=== PATIENT | female | born 1965 | race Caucasian/White ===

== ENCOUNTER 2021-01-02 03:40 | Emergency (ER) | payer MEDICARE, OTHER, SELFPAY ==
--- NOTE | 2021-01-02 03:43 | ECG_ITS ---
[facility] Test Date: 2021-01-02 Pat Name: Jeanie Martines Department: Room: Gender: Female Fourth Officer: : 1965 Requested By: Terra Reaves Order Number: [id number] Carolyn MD: Ashley Villeda M.D. Measurements Intervals Tensed Rate: 90 P: 59 IA: 140 QRS: -12 QRSD: 86 T: 60 QT: 361 QTc: 444 Interpretive Statements SINUS RHYTHM WITH FREQUENT SUPRAVENTRICULAR PREMATURE COMPLEXES SEPTAL MYOCARDIAL INFARCTION [40+ ms Q WAVE IN V1/V2], PROBABLY OLD No previous ECG available for comparison Electronically Signed On 01-03-2021 18:27:00 CDT by Ashley Villeda M.D. [id number]
--- NOTE | 2021-01-02 03:49 | XRR_ITS ---
PROCEDURE INFORMATION: Exam: XR Chest Exam date and time: 01/02/2021 3:49 AM Age: 55 years old Clinical indication: Chest pressure; Patient HX: Chest pain with arrythmia; Additional info: Cp TECHNIQUE: Imaging protocol: XR of the chest. Views: 1 view. COMPARISON: No relevant prior studies available. FINDINGS: Lungs: No CHF/pulmonary edema. Visible lungs appear essentially clear. Pleural spaces: No visible pneumothorax. No definite pleural fluid. Heart/Mediastinum: Heart size is within normal limits. Vasculature: Mild to moderate aortic tortuosity for age. Bones/joints: No significant acute finding. XR/XR chest 1V portable [id number] IMPRESSION: 1. No definite CHF or pneumonia. 2. Other findings discussed above.
[2021-01-02 03:55] VITALS: BP 141/90; PULSE 84; RESP 16; TEMP 36.7; O2SAT 95; BMI 30.2
--- NOTE | 2021-01-02 04:03 | ED_ITS ---
HPI - Arrhythmia/Palpitations General: Chief Complaint: Arrhythmia/Palpitations Stated Complaint: Heart Beating Fast Time Seen by Provider: 01/02/21 03:43 Source: patient Mode of arrival: ambulatory Limitations: no limitations History of Present Illness: HPI narrative: 55-year-old female who states she has had some fluttering butterfly type feeling in the center of her chest since yesterday morning. She denies any pain but is felt a fluttering sensation. She denies any shortness of breath. States she is concerned she is woken up through the night by her apple watch showing that her heart rate was below 40. She has been asymptomatic tonight but want to make sure her heart rate really was not in the 30s as it was alerted. Patient's heart rate here is 84. She denies any shortness of breath. Denies any vomiting or diarrhea. Associated symptoms: Deny nausea or vomiting Review of Systems Const: Denies: fever(s), chills, body aches or change in appetite Eyes: Denies: blurry vision or eye discomfort ENMT: Denies: throat pain or dental pain Card: Reports: chest pain and palpitations Resp: Denies: dyspnea GI: Denies: abdominal pain, nausea, vomiting or diarrhea : Denies: dysuria Musc: Denies: neck pain or back pain Skin/Breast: Denies: rash Neuro: Denies: headache(s) Psych: Denies: depression Сергей/Lymph: Denies: easy bruising All/Imm: Denies: urticaria Physical Exam Const: COMMON NORMALS: no acute distress, patient oriented x3 and healthy appearing HENMT: COMMON NORMALS: normocephalic and atraumatic HEAD & SCALP: normocephalic and atraumatic Eye: COMMON NORMALS: Equal, round and reactive pupils present and EOMs intact bilaterally PUPIL: Yes Equal, round and reactive pupils present Neck/C-Spine: COMMON NORMALS: full ROM and supple Chest: COMMONS NORMALS: normal inspection of the chest and normal palpation of entire chest wall Resp: COMMON NORMALS: normal respiratory effort, No retractions, No use of accessory muscles and clear to auscultation bilaterally AUSCULTATION: clear to auscultation bilaterally Cardio: COMMON NORMALS: regular rate, regular rhythm and No murmurs present (Cardio) RATE: regular rate RHYTHM: regular rhythm GI: COMMON NORMALS: Normal to inspection, nondistended, normoactive bowel sounds present, Soft to palpation, non-tender and no masses PALPATION: Yes Soft to palpation Extremity: COMMON NORMALS: normal to inspection and full ROM Neuro: COMMON NORMALS: patient oriented x3, moves all extremities and no focal motor deficits Psych: COMMON NORMALS: mental status grossly normal, Normal thought process present and cooperative THOUGHT PROCESS: Normal thought process present Skin: COMMON NORMALS: no rashes or lesions noted and no wounds GENERAL SKIN EXAM: no rashes or lesions noted Course Vital Signs: Vital signs: Vital Signs Temperature 98.1 F 01/02/21 03:55 Pulse Rate 87 01/02/21 05:55 Respiratory Rate 15 01/02/21 05:55 Blood Pressure 122/84 01/02/21 05:55 Pulse Oximetry 96 01/02/21 05:55 MDM - Arrhythmia/Palpitations MDM Narrative: Medical decision making narrative: Patient presents here with concern of bradycardia from her apple watch. She has had no bradycardia here. She does have a arrhythmia with frequent premature complexes. Her troponin here is negative has no signs of acute coronary syndrome. We will get her follow-up with cardiology and she is to return if worsening. Lab Data: Labs: Lab Results 01/02/21 01/02/21 01/02/21 Range/Units 04:56 04:56 04:56 WBC 4.4 (4.0-10.0) 10^3/ uL RBC 4.26 (4.1-5.3) 10^6/u L Hgb 13.7 (11.5-15.3) g/dL Hct 42.5 (37.0-47.0) % MCV 99.8 H (81-99) fL MCH 32.2 (28.0-34.0) pg MCHC 32.2 (30.0-36.0) g/dL RDW 13.3 (12.1-15.1) % Plt Count 178 (130-400) 10^3/c mm MPV 11.5 H (7.4-10.4) fL Neut % (Auto) 22.8 % Lymph % (Auto) 56.5 % [place] % (Auto) 13.3 % Eos % (Auto) 6.5 % Baso % (Auto) 0.9 % Neut # (Auto) 1.01 L (1.8-7.7) 10^3/u L Lymph # (Auto) 2.5 (0.8-4.8) 10^3/u L [place] # (Auto) 0.6 (0.2-0.9) 10^3/u L Eos # (Auto) 0.3 (0.0-0.8) 10^3/u L Baso # (Auto) 0.0 (0.0-0.1) 10^3/u L Nucleated RBC % (a uto) 0 % Nucleated RBCs # 0.0 /100WBC Sodium 144 (136-145) mmol/L Potassium 4.7 (3.5-5.1) mmol/L Chloride 107 (98-107) mmol/L Carbon Dioxide 27 (22-29) mmol/L Anion Gap 14.7 (5-19) BUN 20 (6-20) mg/dL Creatinine 0.8 (0.5-0.9) mg/dL GFR Calculation 74.5 L (90-130) mL/min Glucose 94 (65-115) mg/dL Calculated Osmolal ity 300 H (285-295) mOsm/k g Calcium 8.7 (8.5-10.5) mg/dL Total Bilirubin 0.6 (0.15-1.2) mg/dL AST 25 (0-32) U/L ALT 18 (0-33) U/L Alkaline Phosphata se 70 (35-105) IU/L Troponin T Baselin e 7 (0-10) ng/L Total Protein 6.6 (6.6-8.7) g/dL Albumin 4.1 (3.5-5.2) g/dL Globulin 2.5 (1.3-4.6) g/dL Imaging Data^: CXR: Attestation: I personally reviewed and interpreted this imaging study as follows: My impression: no acute abnormality EKG Data^: EKG 1: Attestation: I personally reviewed and interpreted this EKG as follows: EKG interpretation date: 01/02/21 EKG interpretation time: 03:55 Interpretation: sinus rhythm with frequent premature complexes hr [address] or t wave abnormalities qrs 86 qtc 409 Other EKG comments: Chest X-Ray 01/02/21 03:49 IMPRESSION: 1. No definite CHF or pneumonia. 2. Other findings discussed above. EKG 2: Attestation: I personally reviewed and interpreted this EKG as follows: EKG interpretation date: 01/02/21 EKG interpretation time: 05:27 Interpretation: sinus rhythm with frequent premature complexes hr [address] or t wave abnormalities qrs 85 qtc 404 Other EKG comments: Chest X-Ray 01/02/21 03:49 IMPRESSION: 1. No definite CHF or pneumonia. 2. Other findings discussed above. Discharge Plan Discharge Patient Disposition: Home Clinical Impression: Ventricular premature complexes Chest pain Qualifiers: Chest pain type: unspecified Qualified Code(s): R07.9 - Chest pain, unspecified Condition: Stable Discharge Orders: Discharge ED (Routine); Ordered 01/02/21 Ordered By: Terra Reaves Referrals: Rebeca Larios DO [Family Provider] - Ashley Villeda MD [Physician] - 1-3 days Discharge Diet: Advance as tolerated Discharge Activity: Resume usual activity Patient Instructions: Chest Pain (ED) Coding Level of Care Code ED Shot Polisher And Inspector for Chg Fwd Exam Comprehensive
[2021-01-02 04:09] VITALS: PULSE 88; RESP 15; O2SAT 96
[2021-01-02 05:03] LABS: Basophils % 0.9 %; Eosinophils # 0.3 10^3/uL (0.0-0.8); Eosinophils % 6.5 %; Hematocrit 42.5 % (37.0-47.0); Hemoglobin 13.7 g/dL (11.5-15.3); Lymphocytes # 2.5 10^3/uL (0.8-4.8); Lymphocytes % 56.5 %; Mean Corpuscular HGB Conc 32.2 g/dL (30.0-36.0); Mean Corpuscular Hemoglobin 32.2 pg (28.0-34.0); Mean Corpuscular Volume 99.8 fL (81-99); Mean Platelet Volume 11.5 fL (7.4-10.4); Monocytes # 0.6 10^3/uL (0.2-0.9); Monocytes % 13.3 %; Neutrophils # 1.01 10^3/uL (1.8-7.7); Neutrophils % 22.8 %; Nucleated Red Blood Cells % 0 %; Platelet Count 178 10^3/cmm (130-400); Red Blood Count 4.26 10^6/uL (4.1-5.3); Red Cell Distribution Width 13.3 % (12.1-15.1); White Blood Count 4.4 10^3/uL (4.0-10.0)
[2021-01-02 05:12] VITALS: BP 138/75; PULSE 90; RESP 14; O2SAT 95
[2021-01-02 05:34] LABS: Alanine Aminotransferase 18 U/L (0-33); Albumin Level 4.1 g/dL (3.5-5.2); Alkaline Phosphatase 70 IU/L (35-105); Anion Gap 14.7 (5-19); Aspartate Amino Transferase 25 U/L (0-32); Blood Urea Nitrogen 20 mg/dL (6-20); Calcium 8.7 mg/dL (8.5-10.5); Carbon Dioxide 27 mmol/L (22-29); Chloride 107 mmol/L (98-107); Globulin 2.5 g/dL (1.3-4.6); Glomerular Filtration Rate 74.5 mL/min (90-130); Glucose 94 mg/dL (65-115); Osmolality Calculated 300 mOsm/kg (285-295); Potassium 4.7 mmol/L (3.5-5.1); Sodium 144 mmol/L (136-145); Total Bilirubin 0.6 mg/dL (0.15-1.2); Total Protein 6.6 g/dL (6.6-8.7)
[2021-01-02 05:49] LABS: Troponin(5th) Baseline 7 ng/L (0-10)
--- NOTE | 2021-01-02 05:50 | ECG_ITS ---
[facility] ED Test Date: 2021-01-02 Pat Name: Jeanie Martines Department: Room: Gender: Female First Sampler: : 1965 Requested By: Terra Reaves Order Number: [id number] Carolyn MD: Ashley Villeda M.D. Measurements Intervals [place] Rate: 90 P: 52 TX: 151 QRS: -15 QRSD: 85 T: 38 QT: 356 QTc: 436 Interpretive Statements SINUS RHYTHM WITH FREQUENT SUPRAVENTRICULAR PREMATURE COMPLEXES SEPTAL MYOCARDIAL INFARCTION [40+ ms Q WAVE IN V1/V2], PROBABLY OLD Compared to ECG 01/02/2021 03:55:19 No significant changes Electronically Signed On 01-03-2021 18:40:57 CDT by Ashley Villeda M.D. [id number]
[2021-01-02 05:54] VITALS: BP 122/84; PULSE 79; RESP 16; O2SAT 95
[2021-01-02 05:55] VITALS: BP 122/84; PULSE 87; RESP 15; O2SAT 96
--- NOTE | 2021-01-04 09:13 | DCPLANNER ---
manager apple had message to schedule a follow up appointment for patient with Dr. Pike at [facility] for arrhythmia. manager apple called [facility], spoke with Richa, gave clinic patients information. A follow up appointment was scheduled for Monday, January 06, 2021 at 1:[address] Pike. Patient is aware of appointment.
--- NOTE | 2021-01-28 11:02 | DCPLANNER ---
Patient had a follow up appointment scheduled for 01.06.21 with [facility] - patient did attend appointment.
== END 2021-01-02 06:00 | disposition home or self-care (01) ==
PROVIDERS: Emergency Provider Emergency Medicine; Family Provider Family Medicine
DX: I49.3 Ventricular premature depolarization (principal); R07.9 Chest pain, unspecified
CPT/HCPCS: 71045; 80053; 84484; 85025; 93005; 99284

== ENCOUNTER 2021-03-18 12:45 | Outpatient (CLI) | payer MEDICARE, OTHER, SELFPAY ==
--- NOTE | 2021-03-18 13:00 | CT_ITS ---
WS: [id number] CT CALCIUM SCORE REASON FOR VISIT: I47.1 - Supraventricular tachycardia; Coronary artery disease risk assessment COMPARISON: None TECHNIQUE: Noncontrast coronary CT in combination with quantitative analysis performed on a separate workstation were used to determine CACS (Agatston score) TOTAL EXAM DOSE: 82.81 mGy.cm ECG GATING: Prospective SCAN RANGE: Pulmonary artery bifurcation to Inferior aspect of heart COMPLICATIONS: None FINDINGS: Technical Quality/Examination Quality: Good Limitaiton: None OVERALL SCORES Total calcium score: 21 Total volume score: 17 mm3 Percentile: 70 % ARTERY SCORES Left main coronary artery: 14 Left anterior descending artery: 3 Left circumflex artery: 0 Right coronary artery: 0 OTHER FINDINGS: Mediastinum: Normal. Thoracic aorta: Normal. Lungs: Normal. Upper Abdomen: Left hepatic cyst measuring 13 mm. Smaller hepatic cyst in the dome the liver. MINIMAL: 1-10 MILD: 11-100 MODERATE: 101-400 SEVERE:>400 CT/CT heart w calcium score 71317 IMPRESSION: Total calcium score 21 consistent with 70th percentile for patient' s age and gender. GRADING OF CORONARY ARTERY DISEASE (BASED ON TOTAL CALCIUM SCORE) NO EVIDENCE OF CAD: 0 calcium score
== END 2021-03-18 12:46 | disposition home or self-care (01) ==
LOC: RAD 12:48
PROVIDERS: PCP Family Medicine; Visit Provider Internal Medicine Cardiovascular Disease
DX: I47.1 Supraventricular tachycardia (principal)
CPT/HCPCS: 75571

== ENCOUNTER 2021-04-23 07:50 | Outpatient (CLI) | payer MEDICARE, OTHER, SELFPAY ==
--- NOTE | 2021-04-23 08:00 | USCV_ITS ---
Conrad Jeanie Age: 56 Gender: F : 1965 Exam Date: 04/23/2021 08:21 Ordering Phys: Ashley Villeda MD ([email or web address]) Technologist: Nancy Mata Exam Location: [facility] [place] Indication: SUPRAVENTRICULAR TACHYCARDIA BP: 117 / 69 HR: 54 Rhythm: Sinus Technical Quality: Adequate MEASUREMENTS (Male / Female) Normal Values 2D ECHO LV Diastolic Diameter PLAX 3.8 cm 4.2 - 5.9 / 3.9 - 5.3 cm LV Systolic Diameter PLAX 2.8 cm IVS Diastolic Thickness 1.4 cm 0.6 - 1.0 / 0.6 - 0.9 cm IVS Systolic Thickness 1.4 cm LVPW Diastolic Thickness 1.2 cm 0.6 - 1.0 / 0.6 - 0.9 cm LVPW Systolic Thickness 1.7 cm LVOT Diameter 2.0 cm LV Ejection Fraction 2D Teich 52.4 % LV Ejection Fraction MOD 2C 55.2 % LV Ejection Fraction 2C AL 55.9 % LA Diameter 2.2 cm Aorta at Sinotubular Diameter 1.8 cm DOPPLER AV Peak Velocity 128.0 cm/s LVOT Peak Velocity 111.0 cm/s AV Area Cont Eq vti 2.5 cm squared AV Area Cont Eq pk 2.7 cm squared MV Area PHT 5.0 cm squared Mitral E to A Ratio 1.4 MV E' Velocity 49.5 cm/s Mitral E to MV E' Ratio 8.4 Mitral E to LV E' Lateral Ratio 8.5 Mitral E to LV E' Septal Ratio 8.4 TR Peak Velocity 205.5 cm/s TR Peak Gradient 16.9 mmHg TR Mean Velocity 187.7 cm/s TR Mean Gradient 15.5 mmHg TR Velocity Time Integral 79.8 cm TV Peak E Velocity 59.3 cm/s Right Atrial Pressure 3.0 mmHg Pulmonary Artery Systolic Pressu 19.9 mmHg PV Peak Velocity 83.0 cm/s RV Acceleration Time 0.1 s RV Ejection Time 0.4 s RV AcT/ET 0.3 FINDINGS Left Ventricle Normal left ventricular size, systolic function and wall thickness, with no regional wall motion abnormalities. Left ventricular ejection fraction is estimated at 65 %. Normal diastolic function. Right Ventricle Normal right ventricular size and systolic function. Right ventricular systolic pressure 19.9 mmHg. Right Atrium Normal right atrial size. Left Atrium Normal left atrial size. Mitral Valve Mildly thickened mitral valve. No mitral valve stenosis. Trace mitral valve regurgitation. Aortic Valve Structurally normal trileaflet aortic valve. No aortic valve stenosis. Trace aortic valve regurgitation. Tricuspid Valve Structurally normal tricuspid valve. Trace tricuspid valve regurgitation. Pulmonic Valve Pulmonic valve not well visualized. Trace pulmonary valve regurgitation. Pericardium No thickening/calcification of the pericardium. No pericardial effusion. Aorta Normal size aortic root and proximal ascending aorta. CONCLUSIONS 1. Normal left ventricular size, systolic function and wall thickness, with no regional wall motion abnormalities. Left ventricular ejection fraction is estimated at 65 %. Normal diastolic function. 2. Trace aortic valve regurgitation. 3. Normal pulmonary artery pressure. 4. No prior similar studies to compare. Ashley Villeda MD (Electronically Signed) Final Date: 26 April 2021 07:30 S
[2021-04-23] MEDS: perflutren protein-a microsphr 0.22 mg/mL SDV 3 mL IV (09:08)
== END 2021-04-23 07:51 | disposition home or self-care (01) ==
LOC: US 07:51
PROVIDERS: PCP Family Medicine; Visit Provider Internal Medicine Cardiovascular Disease
DX: I47.1 Supraventricular tachycardia (principal); I49.1 Atrial premature depolarization; I35.1 Nonrheumatic aortic (valve) insufficiency
CPT/HCPCS: C8929

== ENCOUNTER → 2022-05-10 10:32 | Outpatient (BNVA) | payer MEDICARE, OTHER, SELFPAY | PROVIDERS: PCP Family Medicine; Visit Provider Internal Medicine Cardiovascular Disease | DX: R00.2 Palpitations (principal); I47.1 Supraventricular tachycardia; I49.1 Atrial premature depolarization | CPT/HCPCS: 99214 ==

== ENCOUNTER → 2023-04-10 13:42 | Outpatient (BNVA) | payer MEDICARE, OTHER, SELFPAY | PROVIDERS: PCP Family Medicine; Visit Provider Internal Medicine Cardiovascular Disease | DX: R00.2 Palpitations (principal); I49.1 Atrial premature depolarization; I47.10 Supraventricular tachycardia, unspecified | CPT/HCPCS: 99214 ==

== ENCOUNTER → 2024-09-17 08:02 | Outpatient (BNVA) | payer MEDICARE, OTHER, SELFPAY | PROVIDERS: PCP Family Medicine; Visit Provider Podiatrist Foot & Ankle Surgery | DX: L84 Corns and callosities (principal) | CPT/HCPCS: 99203 ==